=== PATIENT | female | born 1995 | race Caucasian/White ===

== ENCOUNTER 2017-10-08 21:28 | Emergency (ER) | payer SELFPAY ==
[~2017-10-08] VITALS: Ht 160 cm; Wt 83.0 kg
[2017-10-08 21:59] LABS: HEMATOCRIT 39.2 % (36.0-46.0); HEMOGLOBIN 13.6 G/DL (11.9-15.5); MCH 32.4 PG (29.0-34.0); MCHC 34.7 G/DL (30.0-36.0); MCV 93.3 FL (83-99); PLATELET COUNT 382 K/uL (156-360); RBC DIS.WIDTH-CV 11.8 % (11.8-14.6); RBC DIS.WIDTH-SD 40.2 % (39-53); WHITE BLOOD COUNT 10.7 K/uL (4.1-10.2)
[2017-10-08 22:13] LABS: ALBUMIN 4.5 g/dL (3.2-4.8)
[2017-10-08 22:14] LABS: CHLORIDE 105 mEq/L (99-109); POTASSIUM 4.2 mEq/L (3.7-5.4); SODIUM 142 mEq/L (136-147)
[2017-10-08 22:16] LABS: GLUCOSE 88 mg/dL (70-99); TOTAL PROTEIN 7.8 g/dL (6.4-8.3)
[2017-10-08 22:18] LABS: TOTAL BILIRUBIN 0.2 mg/dL (0.0-1.0)
[2017-10-08 22:19] LABS: ALKALINE PHOSPHATASE 98 IU/L (3-129)
[2017-10-08 22:20] LABS: CREATININE 0.7 mg/dL (0.6-1.3)
[2017-10-08 22:21] LABS: AST (GOT) 24 IU/L (2-34); GFR ESTIMATE (CALCULATED) > 59 mL/min/; UREA NITROGEN (BUN) 7 mg/dL (9-23)
[2017-10-08 22:22] LABS: ALT (GPT) 38 IU/L (3-49)
[2017-10-08 22:30] LABS: QUANTITATIVE HCG < 4.0 MIU/ML
[2017-10-08 22:49] LABS: APPEARANCE SL.HAZY ((CLEAR)); BILIRUBIN NEGATIVE; BLOOD NEGATIVE; COLOR YELLOW ((YELLOW)); GLUCOSE (STRIP) NEGATIVE; KETONES NEGATIVE; LEUKOCYTES SMALL; NITRITE NEGATIVE; PROTEIN (STRIP) NEGATIVE; SPECIFIC GRAVITY 1.021 (1.000-1.030); UROBILINOGEN 0.2 MG/DL (0.2-1.0)
[2017-10-08 22:53] LABS: BACTERIA NONE SEEN /HPF; EPITHELIAL CELLS 2+ /HPF; MUCUS TRACE /LPF; RED BLOOD CELLS 0-5 /HPF (0-5); UCUL ADDED? NO; WHITE BLOOD CELLS 0-5 /HPF (0-5)
[2017-10-09 00:32] VITALS: BP 118/78
== END 2017-10-09 00:33 | disposition home or self-care (01) ==
LOC: EME 21:28
DX: R10.9 Unspecified abdominal pain (principal); R11.2 Nausea with vomiting, unspecified; F17.200 Nicotine dependence, unspecified, uncomplicated
CPT/HCPCS: 80053; 81003; 84702; 85027; 99281; 99284